=== PATIENT | female | born 1995 | race African-American/Black ===

== ENCOUNTER 2016-04-16 08:21 | Inpatient (IN) | payer SELFPAY ==
[~2016-04-16] VITALS: Ht 162.6 cm; Wt 90.7 kg
--- NOTE | 2016-04-16 08:29 | PHYS DOC ---
Past Medical History Past Medical History: No Pertinent History Past Surgical History: Tonsillectomy Alcohol Use: None Drug Use: None Adult General Chief Complaint Chief Complaint: GI PROBLEM HPI HPI Patient is a 20 year old female who presents with nausea vomiting and diarrhea and abdominal pain. She states it all started this morning. She's had 3-4 liquid-type stools with some formed stool in it in addition to several episodes of nonbloody vomiting. She states her last menstrual period was in December she's had some spotting last month. She states she's never been . She is unsure if she is currently but states her belly's been distended for 3 months. Review of Systems Review of Systems Constitutional: Denies fever or chills [] Eyes: Denies change in visual acuity, redness, or eye pain [] HENT: Denies nasal congestion or sore throat [] Respiratory: Denies cough or shortness of breath [] Cardiovascular: No additional information not addressed in HPI [] GI: Denies abdominal pain, nausea, vomiting, bloody stools or diarrhea [] : Denies dysuria or hematuria [] Musculoskeletal: Denies back pain or joint pain [] Integument: Denies rash or skin lesions [] Neurologic: Denies headache, focal weakness or sensory changes [] Endocrine: Denies polyuria or polydipsia [] Current Medications Current Medications Current Medications Medications (Trade) Dose Ordered Sig/Kelley Start Time Stop Time Status Last Admin Dose Admin Ondansetron HCl (Zofran) 4 mg STK-MED ONCE 04/16/16 08:53 04/16/16 08:54 DC Sodium Chloride (Iv Sodium Chloride 0.9% 1000ml Bag) 1,000 ml @ 1,000 mls/hr Q1H 04/16/16 08:48 04/16/16 09:47 DC Allergies Allergies Allergies Coded Allergies Type Severity Reaction Last Updated Verified No Known Drug Allergies 02/05/15 No Physical Exam Physical Exam Constitutional: Well developed, well nourished, no acute distress, non-toxic appearance. [] HENT: Normocephalic, atraumatic, bilateral external ears normal, oropharynx moist, no oral exudates, nose normal. [] Eyes: PERRLA, EOMI, conjunctiva normal, no discharge. [] Neck: Normal range of motion, no tenderness, supple, no stridor. [] Cardiovascular:Heart rate regular rhythm, no murmur [] Lungs & Thorax: Bilateral breath sounds clear to auscultation [] Abdomen: Bowel sounds normal, soft, mild tender palpation diffusely, gravid uterus, no pulsatile masses. [] Skin: Warm, dry, no erythema, no rash. [] Back: No tenderness, no CVA tenderness. [] Extremities: No tenderness, no cyanosis, no clubbing, ROM intact, no edema. [] Neurologic: Alert and oriented X 3, normal motor function, normal sensory function, no focal deficits noted. [] Psychologic: Affect normal, judgement normal, mood normal. [] Current Patient Data Vital Signs Vital Signs Date Time Temp Pulse Resp B/P Pulse Ox O2 Delivery O2 Flow Rate FiO2 04/16/16 08:28 98.9 107 16 137/72 98 Room Air 98.9 Lab Values Laboratory Tests Test 04/16/16 08:50 04/16/16 08:57 04/16/16 09:05 Urine Color Yellow Urine Clarity Clear Urine pH 8.0 Urine Specific [place] 1.015 Urine Protein 30mg/dL (NEG-TRACE) Urine Glucose (UA) Negativemg/dL (NEG) Urine Ketones (Stick) Tracemg/dL (NEG) Urine Blood Moderate (NEG) Urine Nitrite Negative (NEG) Urine Bilirubin Negative (NEG) Urine Urobilinogen Dipstick 1.0mg/dL (0.2 mg/dL) Urine Leukocyte Esterase Trace (NEG) Urine RBC 0/HPF (0-2) Urine WBC Occ/HPF (0-4) Urine Squamous Epithelial Cells Occ/LPF Urine Bacteria 0/HPF (0-FEW) Urine Opiates Screen Neg (NEG) Urine Methadone Screen Neg (NEG) Urine Barbiturates Neg (NEG) Urine Phencyclidine Screen Neg (NEG) Urine Amphetamine/Methamphetamine Neg (NEG) Urine Benzodiazepines Screen Neg (NEG) Urine Cocaine Screen Neg (NEG) Urine Cannabinoids Screen Neg (NEG) Urine Ethyl Alcohol Neg (NEG) POC Urine HCG, Qualitative Hcg positive (Negative) White Blood Count 17.4x10^3/uL (4.0-11.0) H Red Blood Count 4.24x10^6/uL (3.50-5.40) Hemoglobin 8.7g/dL (12.0-15.5) L Hematocrit 27.6% (36.0-47.0) L Mean Corpuscular Volume 65fL (79-100) L Mean Corpuscular Hemoglobin 21pg (25-35) L Mean Corpuscular Hemoglobin Concent 32g/dL (31-37) Red Cell Distribution Width 19.3% (11.5-14.5) H Platelet Count 394x10^3/uL (140-400) Neutrophils (%) (Auto) 87% (31-73) H Lymphocytes (%) (Auto) 7% (24-48) L Monocytes (%) (Auto) 4% (0-9) Eosinophils (%) (Auto) 1% (0-3) Basophils (%) (Auto) 0% (0-3) Neutrophils # (Auto) 15.2x10^3uL (1.8-7.7) H Lymphocytes # (Auto) 1.2x10^3/uL (1.0-4.8) Monocytes # (Auto) 0.8x10^3/uL (0.0-1.1) Eosinophils # (Auto) 0.1x10^3/uL (0.0-0.7) Basophils # (Auto) 0.1x10^3/uL (0.0-0.2) Segmented Neutrophils % 88% (35-66) H Band Neutrophils % 3% (0-9) Lymphocytes % 6% (24-48) L Monocytes % 3% (0-10) Platelet Estimate Adequate (ADEQUATE) Prothrombin Time 12.9SEC (11.7-14.0) Prothrombin Time INR 1.0 (0.8-1.1) PTT 26SEC (24-38) Sodium Level 141mmol/L (136-145) Potassium Level 3.3mmol/L (3.5-5.1) L Chloride Level 105mmol/L (98-107) Carbon Dioxide Level 23mmol/L (21-32) Anion Gap 13 (6-14) Blood Urea Nitrogen 4mg/dL (7-20) L Creatinine 0.6mg/dL (0.6-1.0) Estimated GFR (Cockcroft-Gault) 151.3 BUN/Creatinine Ratio 7 (6-20) Glucose Level 110mg/dL (70-99) H Calcium Level 8.8mg/dL (8.5-10.1) Total Bilirubin 0.8mg/dL (0.2-1.0) Aspartate Amino Transferase (AST) 15U/L (15-37) Alanine Aminotransferase (ALT) 15U/L (14-59) Alkaline Phosphatase 143U/L (46-116) H Total Protein 6.8g/dL (6.4-8.2) Albumin 2.6g/dL (3.4-5.0) L Albumin/Globulin Ratio 0.6 (1.0-1.7) L Lipase 149U/L (73-393) Laboratory Tests 04/16/16 09:05 Laboratory Tests 04/16/16 09:05 EKG EKG [] Radiology/Procedures Radiology/Procedures [] Impressions: Abdominal pain with Course & Med Decision Making Course & Med Decision Making Pertinent Labs and Imaging studies reviewed. (See chart for details) I placed an ultrasound on her abdomen is there is a fetus with cardiac activity present, I'm unable to determine age however I am guessing close to term. OB is paged to take her upstairs for further evaluation. OB arrived and did a cervical check and states she's fully dilated, and had a bloody show. Patient's being taken upstairs to labor and delivery at this time, in stable condition. Dragon Disclaimer Dragon Disclaimer This electronic medical record was generated, in whole or in part, using a voice recognition dictation system. Departure Departure Impression: Primary Impression: Abdominal pain during Disposition: ADMITTED INPATIENT Condition: STABLE Referrals: NO PCP (PCP) LILIAM LOCK MD Apr 16, 2016 08:29
[2016-04-16] MEDS ORDERED: IV NORMAL SALINE 1000ML BAG 1,000 ML IV SCH (08:48)
[2016-04-16] MEDS ORDERED: ONDANSETRON PF 4 MG/2 ML VIAL. ONE (08:53)
[2016-04-16] MEDS ORDERED: ONDANSETRON PF 4 MG/2 ML VIAL. IV ONE (09:00)
[2016-04-16 09:15] LABS: BARBITURATES NEG (NEG); BENZODIAZEPINES NEG (NEG); CANNABINOIDS NEG (NEG); COCAINE NEG (NEG); METHADONE NEG (NEG); OPIATES NEG (NEG); PHENCYCLIDINE NEG (NEG)
[2016-04-16 09:19] LABS: BASO # 0.1 x10^3/uL (0.0-0.2); BASO % 0 % (0-3); EOS % 1 % (0-3); HEMATOCRIT 27.6 % (36.0-47.0); HEMOGLOBIN 8.7 g/dL (12.0-15.5); LYMPH # 1.2 x10^3/uL (1.0-4.8); LYMPH % 7 % (24-48); MEAN CORPUSCULAR HEMOGLOBIN 21 pg (25-35); MEAN CORPUSCULAR HGB CONC 32 g/dL (31-37); MEAN CORPUSCULAR VOLUME 65 fL (79-100); MONO % 4 % (0-9); NEUT % 87 % (31-73); PLATELET COUNT 394 x10^3/uL (140-400); RED BLOOD COUNT 4.24 x10^6/uL (3.50-5.40); RED CELL DISTRIBUTION WIDTH 19.3 % (11.5-14.5); WHITE BLOOD COUNT 17.4 x10^3/uL (4.0-11.0)
[2016-04-16 09:20] LABS: ETHANOL, URINE NEG (NEG)
[2016-04-16 09:23] LABS: BILIRUBIN,URINE NEGATIVE (NEG); GLUCOSE,URINE NEGATIVE (NEG); NITRITE,URINE NEGATIVE (NEG); PROTEIN,URINE 30 mg/dL (NEG-TRACE)
[2016-04-16 09:24] LABS: CALCIUM 8.8 mg/dL (8.5-10.1); CREATININE 0.6 mg/dL (0.6-1.0); GFR 151.3; POTASSIUM 3.3 mmol/L (3.5-5.1)
[2016-04-16 09:29] LABS: ALBUMIN 2.6 g/dL (3.4-5.0); ALBUMIN/GLOBULIN RATIO 0.6 (1.0-1.7); TOTAL BILIRUBIN 0.8 mg/dL (0.2-1.0); TOTAL PROTEIN 6.8 g/dL (6.4-8.2)
--- NOTE | 2016-04-16 09:37 | PDOC ---
Provider Note Provider Note Pt presented C/100/+3 Limited PNC Standby delivery for Dr Corona Arrived soon after delivery of . MABEL HUGHES MD Apr 16, 2016 09:37
[2016-04-16 09:38] LABS: BACTERIA,URINE 0 /HPF (0-FEW); RBC,URINE 0 /HPF (0-2); SQUAMOUS EPITHELIAL CELL,UR OCC /LPF; WBC,URINE OCC /HPF (0-4)
[2016-04-16 10:10] LABS: PROTHROMBIN TIME PATIENT 12.9 SEC (11.7-14.0)
[2016-04-16] MEDS ORDERED: 0.9 % SODIUM CHLORIDE 10 ML DISP.SYRIN. IV PRN ×2 (10:15→10:30)
[2016-04-16] MEDS ORDERED: DIPHENHYDRAMINE HCL 25 MG CAPSULE PO PRN (10:15)
[2016-04-16] MEDS ORDERED: MAGNESIUM HYDROXIDE 2,400 MG/30 ML ORAL.SUSP. PO PRN (10:15)
[2016-04-16] MEDS ORDERED: BENZOCAINE 20% TOPICAL AEROSOL SPRAY 57GM CAN. TP PRN (10:15)
[2016-04-16] MEDS ORDERED: PHENYLEPH/MINERAL OIL/PETROLAT RECTAL OINTMENT 28GM TUBE. RC PRN (10:15)
[2016-04-16] MEDS ORDERED: ZOLPIDEM 5 MG TABLET. PO PRN (10:15)
[2016-04-16] MEDS ORDERED: MMR per PROTOCOL. MC PRN (10:15)
[2016-04-16] MEDS ORDERED: SIMETHICONE 80 MG TAB.CHEW PO PRN (10:15)
[2016-04-16] MEDS ORDERED: ACETAMINOPHEN 325 MG TABLET. PO PRN (10:15)
[2016-04-16] MEDS ORDERED: HYDROCORTISONE 1% TOPICAL OINTMENT 30GM TUBE. TP PRN (10:15)
[2016-04-16] MEDS ORDERED: HYDROCODONE/APAP 5/325MG TABLET. PO PRN ×2 (10:15)
[2016-04-16] MEDS ORDERED: MAG HYDROX/ALUMINUM HYD/SIMETH 30 ML ORAL.SUSP PO PRN (10:15)
[2016-04-16] MEDS ORDERED: OXYTOCIN 30 UNIT/500 ML PREMIX 500 ML IV PRN ×2 (10:15→10:30)
[2016-04-16 10:27] LABS: PLT ESTIMATE ADEQUATE (ADEQUATE)
[2016-04-16] MEDS ORDERED: IV RINGERS,LACTATED 1000ML 1,000 ML IV SCH (10:30)
[2016-04-16] MEDS ORDERED: TERBUTALINE 1 MG/ML VIAL. SQ PRN (10:30)
[2016-04-16] MEDS ORDERED: LIDOCAINE 1% PF 30 ML VIAL. INJ PRN (10:30)
[2016-04-16 11:54] LABS: HEMATOCRIT 27.4 % (36.0-47.0); HEMOGLOBIN 8.6 g/dL (12.0-15.5); RED BLOOD COUNT 4.17 x10^6/uL (3.50-5.40); RED CELL DISTRIBUTION WIDTH 19.7 % (11.5-14.5); WHITE BLOOD COUNT 19.2 x10^3/uL (4.0-11.0)
[2016-04-16 14:06] VITALS: BP 113/65
[2016-04-16 18:15] VITALS: BP 122/70
--- NOTE | 2016-04-16 21:41 | PDOC1 ---
OB - History Hx of Present Care: None Ultrasounds: No ultrasounds Obstetrical Complications: None Past Family/Social History * Past Medical, Surgical, Family and Obstetric Histories reviewed from chart. Blood Type: A+ GBS Status: Unknown HBsAG: Negative OB - Chief Complaint & HPI Date of Admission: Date of Admission: Apr 16, 2016 at 09:18 Chief Complaint/History : 1 Para: 0 EDC: Apr 16, 2016 (unknown) Reason for admission: active labor Admission Nurse Assessment Rev: Yes Problems: OB - Admission Exam Physical Exam Vitals: VS - Last 72 Hours, by Label Date Time Temp Pulse Resp B/P Pulse Ox O2 Delivery O2 Flow Rate FiO2 04/16/16 18:15 98.1 95 20 122/70 Room Air 98.1 04/16/16 14:06 98.3 114 20 113/65 98.3 04/16/16 08:28 98.9 107 16 137/72 98 Room Air 98.9 HEENT: Normal, Nasal Mucosa Normal, Oropharynx Normal, Moist Membranes, Fontanelles Normal Lungs: Clear, Equal Abdomen: Gravid Extremities: Normal Pulses, No tenderness or swelling Reflexes: Normal Cervical Dilatation: 10cm Effacement: 100% Station: +1 Membranes: Ruptured Amniotic Fluid: Clear Heart Rate: Normal Accelerations: Accelerations Present Decelerations: No decelerations Short Term Variability: Present Residential Variability: Moderate Contractions on Admission: < 5 Minutes Apart Date/Time Contractions Began;: 04/16/16 3 am SROM Intensity: SHAHID Peña MD Apr 16, 2016 21:41
[2016-04-16] MEDS: IBUPROFEN 800 MG TABLET. PO SCH (22:12)
[2016-04-16 22:59] VITALS: BP 120/76
--- NOTE | 2016-04-17 01:32 | OP ---
DATE OF SURGERY: 04/16/2016 CLINCAL COURSE: This patient is a 20-year-old G1, P0, -[place] female who came to the Emergency Room complaining of abdominal pain, nausea, vomiting. She apparently was unaware that she was . This was discovered during ER evaluation, she was transferred to the floor. She was complete and had ruptured membranes. After discussion, it was felt that the patient had ruptured membranes approximately 6 hours prior to evaluation in the Emergency Room. She began precipitous delivery with Dr. Worthy in attendance. The was delivered and the remainder of delivery was attended by myself with clamping of cord, suctioning of baby, transection of the cord and handing of baby, placenta was then delivered intact with 3-vessel cord noted after obtaining cord gases and cord blood. Uterus was firm with Pitocin and palpation. A second degree midline laceration was noted as well as two vaginal side wall lacerations, these were sutured with 3-0 chromic in a running locking fashion. There was good hemostasis with approximately 300 mL blood loss. Mother and baby went to recovery in stable condition. Complications of this delivery were precipitous delivery with apparent term infant with no care. There is no anesthesia used for delivery. SHAHID ARREDONDO MD DR: STACI/melvin JOB#: [id number] / [id number]
[2016-04-17 06:13] VITALS: BP 121/81
[2016-04-17 07:28] LABS: BASO % 0 % (0-3); EOS % 0 % (0-3); HEMATOCRIT 24.9 % (36.0-47.0); HEMOGLOBIN 7.6 g/dL (12.0-15.5); LYMPH # 2.1 x10^3/uL (1.0-4.8); LYMPH % 13 % (24-48); MEAN CORPUSCULAR HEMOGLOBIN 20 pg (25-35); MEAN CORPUSCULAR HGB CONC 30 g/dL (31-37); MEAN CORPUSCULAR VOLUME 67 fL (79-100); MONO % 10 % (0-9); NEUT % 76 % (31-73); PLATELET COUNT 323 x10^3/uL (140-400); RED CELL DISTRIBUTION WIDTH 19.9 % (11.5-14.5); WHITE BLOOD COUNT 15.9 x10^3/uL (4.0-11.0)
[2016-04-17] MEDS: FERROUS SULFATE 325 MG TABLET PO SCH ×2 (08:57→17:38)
[2016-04-17] MEDS ORDERED: FLU VACC QUAD 2016-17 (36MOS+)/PF 0.5 ML SYRINGE. VAX IM ONE (09:00)
[2016-04-17] MEDS ORDERED: DIPHTH,PERTUSS(ACELL),TET TOX 0.5 ML DISP.SYRIN. VAX IM ONE (09:00)
--- NOTE | 2016-04-17 11:09 | PDOC ---
PROGRESS NOTES Subjective Subjective Patient doing well day 1. Patient tolerating diet and ambulate. Patient having decreased pain and bleeding. Patient arrived with low hemoglobin of approximately 8 she is now down to 7.6 without evidence of shock or dizziness will proceed with iron supplementation and education Objective Objective Vital Signs Date Time Temp Pulse Resp B/P Pulse Ox O2 Delivery O2 Flow Rate FiO2 04/17/16 06:13 100.9 80 18 121/81 100.9 04/16/16 18:15 Room Air 04/16/16 08:28 98 Physical Exam Abdomen: Normal bowel sounds, Other (uterus firm and below umbilicus) Heart: Regular rate, Other (negative Nadia's sign) Extremities: No edema General: Alert Lungs: Clear to auscultation Assessment Assessment Problems Medical Problems: (1) Abdominal pain during Status: Acute day #1 Plan Plan of Care Routine care Obtain urine for GC chlamydia and trichomoniasis. Comment Review of Relevant I have reviewed the following items bernadine (where applicable) has been applied. Labs Laboratory Tests Test 04/16/16 08:50 04/16/16 08:57 04/16/16 09:05 04/16/16 11:20 Urine Color Yellow Urine Clarity Clear Urine pH 8.0 Urine Specific [place] 1.015 Urine Protein 30mg/dL (NEG-TRACE) Urine Glucose (UA) Negativemg/dL (NEG) Urine Ketones (Stick) Tracemg/dL (NEG) Urine Blood Moderate (NEG) Urine Nitrite Negative (NEG) Urine Bilirubin Negative (NEG) Urine Urobilinogen Dipstick 1.0mg/dL (0.2 mg/dL) Urine Leukocyte Esterase Trace (NEG) Urine RBC 0/HPF (0-2) Urine WBC Occ/HPF (0-4) Urine Squamous Epithelial Cells Occ/LPF Urine Bacteria 0/HPF (0-FEW) Urine Opiates Screen Neg (NEG) Urine Methadone Screen Neg (NEG) Urine Barbiturates Neg (NEG) Urine Phencyclidine Screen Neg (NEG) Urine Amphetamine/Methamphetamine Neg (NEG) Urine Benzodiazepines Screen Neg (NEG) Urine Cocaine Screen Neg (NEG) Urine Cannabinoids Screen Neg (NEG) Urine Ethyl Alcohol Neg (NEG) Bedside Urine HCG, Qualitative Hcg positive (Negative) White Blood Count 17.4x10^3/uL (4.0-11.0) 19.2x10^3/uL (4.0-11.0) Red Blood Count 4.24x10^6/uL (3.50-5.40) 4.17x10^6/uL (3.50-5.40) Hemoglobin 8.7g/dL (12.0-15.5) 8.6g/dL (12.0-15.5) Hematocrit 27.6% (36.0-47.0) 27.4% (36.0-47.0) Mean Corpuscular Volume 65fL (79-100) 66fL (79-100) Mean Corpuscular Hemoglobin 21pg (25-35) 21pg (25-35) Mean Corpuscular Hemoglobin Concent 32g/dL (31-37) 31g/dL (31-37) Red Cell Distribution Width 19.3% (11.5-14.5) 19.7% (11.5-14.5) Platelet Count 394x10^3/uL (140-400) 366x10^3/uL (140-400) Neutrophils (%) (Auto) 87% (31-73) Lymphocytes (%) (Auto) 7% (24-48) Monocytes (%) (Auto) 4% (0-9) Eosinophils (%) (Auto) 1% (0-3) Basophils (%) (Auto) 0% (0-3) Neutrophils # (Auto) 15.2x10^3uL (1.8-7.7) Lymphocytes # (Auto) 1.2x10^3/uL (1.0-4.8) Monocytes # (Auto) 0.8x10^3/uL (0.0-1.1) Eosinophils # (Auto) 0.1x10^3/uL (0.0-0.7) Basophils # (Auto) 0.1x10^3/uL (0.0-0.2) Segmented Neutrophils % 88% (35-66) Band Neutrophils % 3% (0-9) Lymphocytes % 6% (24-48) Monocytes % 3% (0-10) Platelet Estimate Adequate (ADEQUATE) Prothrombin Time 12.9SEC (11.7-14.0) Prothromb Time International Ratio 1.0 (0.8-1.1) Activated Partial Thromboplast Time 26SEC (24-38) Sodium Level 141mmol/L (136-145) Potassium Level 3.3mmol/L (3.5-5.1) Chloride Level 105mmol/L (98-107) Carbon Dioxide Level 23mmol/L (21-32) Anion Gap 13 (6-14) Blood Urea Nitrogen 4mg/dL (7-20) Creatinine 0.6mg/dL (0.6-1.0) Estimated GFR (Cockcroft-Gault) 151.3 BUN/Creatinine Ratio 7 (6-20) Glucose Level 110mg/dL (70-99) Calcium Level 8.8mg/dL (8.5-10.1) Total Bilirubin 0.8mg/dL (0.2-1.0) Aspartate Amino Transf (AST/SGOT) 15U/L (15-37) Alanine Aminotransferase (ALT/SGPT) 15U/L (14-59) Alkaline Phosphatase 143U/L (46-116) Total Protein 6.8g/dL (6.4-8.2) Albumin 2.6g/dL (3.4-5.0) Albumin/Globulin Ratio 0.6 (1.0-1.7) Lipase 149U/L (73-393) RPR Titer Additional Testing Negative (Non Reactive) Hepatitis B Surface Antigen Negative (Negative) HIV-1 Antibody Non reactive (Non Reactive) Test 04/17/16 07:00 White Blood Count 15.9x10^3/uL (4.0-11.0) Red Blood Count 3.70x10^6/uL (3.50-5.40) Hemoglobin 7.6g/dL (12.0-15.5) Hematocrit 24.9% (36.0-47.0) Mean Corpuscular Volume 67fL (79-100) Mean Corpuscular Hemoglobin 20pg (25-35) Mean Corpuscular Hemoglobin Concent 30g/dL (31-37) Red Cell Distribution Width 19.9% (11.5-14.5) Platelet Count 323x10^3/uL (140-400) Neutrophils (%) (Auto) 76% (31-73) Lymphocytes (%) (Auto) 13% (24-48) Monocytes (%) (Auto) 10% (0-9) Eosinophils (%) (Auto) 0% (0-3) Basophils (%) (Auto) 0% (0-3) Neutrophils # (Auto) 12.1x10^3uL (1.8-7.7) Lymphocytes # (Auto) 2.1x10^3/uL (1.0-4.8) Monocytes # (Auto) 1.6x10^3/uL (0.0-1.1) Eosinophils # (Auto) 0.0x10^3/uL (0.0-0.7) Basophils # (Auto) 0.0x10^3/uL (0.0-0.2) Laboratory Tests Test 04/16/16 11:20 04/17/16 07:00 White Blood Count 19.2x10^3/uL (4.0-11.0) 15.9x10^3/uL (4.0-11.0) Red Blood Count 4.17x10^6/uL (3.50-5.40) 3.70x10^6/uL (3.50-5.40) Hemoglobin 8.6g/dL (12.0-15.5) 7.6g/dL (12.0-15.5) Hematocrit 27.4% (36.0-47.0) 24.9% (36.0-47.0) Mean Corpuscular Volume 66fL (79-100) 67fL (79-100) Mean Corpuscular Hemoglobin 21pg (25-35) 20pg (25-35) Mean Corpuscular Hemoglobin Concent 31g/dL (31-37) 30g/dL (31-37) Red Cell Distribution Width 19.7% (11.5-14.5) 19.9% (11.5-14.5) Platelet Count 366x10^3/uL (140-400) 323x10^3/uL (140-400) RPR Titer Additional Testing Negative (Non Reactive) Hepatitis B Surface Antigen Negative (Negative) HIV-1 Antibody Non reactive (Non Reactive) Neutrophils (%) (Auto) 76% (31-73) Lymphocytes (%) (Auto) 13% (24-48) Monocytes (%) (Auto) 10% (0-9) Eosinophils (%) (Auto) 0% (0-3) Basophils (%) (Auto) 0% (0-3) Neutrophils # (Auto) 12.1x10^3uL (1.8-7.7) Lymphocytes # (Auto) 2.1x10^3/uL (1.0-4.8) Monocytes # (Auto) 1.6x10^3/uL (0.0-1.1) Eosinophils # (Auto) 0.0x10^3/uL (0.0-0.7) Basophils # (Auto) 0.0x10^3/uL (0.0-0.2) Medications Current Medications Sodium Chloride (Iv Sodium Chloride 0.9% 1000ml Bag) 1,000 ml @ 1,000 mls/hr Q1H IV ; Start 04/16/16 at 08:48; Stop 04/16/16 at 09:47; Status DC Ondansetron HCl (Zofran) 4 mg 1X ONCE IV ; Start 04/16/16 at 09:00; Stop at 09:01; Status DC Ondansetron HCl (Zofran) 4 mg STK-MED ONCE .ROUTE ; Start 04/16/16 at 08:53; Stop 04/16/16 at 08:54; Status DC Sodium Chloride 10 ml 10 ml QSHIFT PRN IV AFTER MEDS AND BLOOD DRAWS; Start at 10:15 Oxytocin/Sodium Chloride (Oxytocin Premix Infusion) 500 ml @ 62.5 mls/hr CONT PRN IV SEE I/O RECORD Last administered on 04/16/16 11:18; Start 04/16/16 at 10 :15; Stop 04/16/16 at 18:14; Status DC Acetaminophen (Tylenol) 650 mg PRN Q6HRS PRN PO MILD PAIN / TEMP; Start at 10:15 Ibuprofen (Motrin) 800 mg Q8HRS PO Last administered on 04/16/16 22:12; Start 04/16/16 at 14:00 Magnesium Hydroxide (Milk Of Magnesia) 2,400 mg PRN DAILY PRN PO CONSTIPATION Last administered on 04/17/16 08:58; Start 04/16/16 at 10:15 Al Hydrox/Mg Hydrox/Simethicone (Mylanta Plus Xs) 30 ml PRN Q4HRS PRN PO HEARTBURN / GAS; Start 04/16/16 at 10:15 Simethicone (Gas-X) 80 mg PRN AFTMEALHC PRN PO GAS / BLOATING; Start 04/16/16 at 10:15 Diphenhydramine HCl (Benadryl) 25 mg PRN Q6HRS PRN PO ITCHING; Start 04/16/16 at 10:15 Benzocaine (Americaine) 1 spray PRN QID PRN TP TOPICAL PAIN; Start 04/16/16 at 10:15 Phenyleph/Shark Oil/Min Oil/Petrol (Preparation H) 1 zee PRN QID PRN RC RECTAL PAIN; Start 04/16/16 at 10:15 Hydrocortisone (Cortaid) 1 zee PRN QID PRN TP PERINEAL PAIN; Start 04/16/16 at 10:15 Ferrous Sulfate (Feosol) 325 mg BIDWMEALS PO Last administered on 04/17/16t 08: 57; Start 04/17/16 at 08:00 Zolpidem Tartrate (Ambien) 5 mg PRN QHS PRN PO INSOMNIA, MAY REPEAT X1; Start 04/16/16 at 10:15 Info (Do NOT chart on this placeholder) 1 ea 1X PRN PRN MC SEE COMMENTS; Start 04/16/16 at 10:15 Info (Do NOT chart on this placeholder) 1 ea 1X PRN PRN MC SEE COMMENTS; Start 04/16/16 at 10:15 Acetaminophen/ Hydrocodone Bitart (Lortab 5/325) 1 tab PRN Q4HRS PRN PO MILD PAIN; Start 04/16/16 at 10:15 Acetaminophen/ Hydrocodone Bitart (Lortab 5/325) 2 tab PRN Q4HRS PRN PO MODERATE PAIN, SEVERE PAIN; Start 04/16/16 at 10:15 Sodium Chloride 3 ml 3 ml QSHIFT PRN IV AFTER MEDS AND BLOOD DRAWS; Start 04/16 at 10:30 Lactated Ringer's (Iv Lactated Ringers) 1,000 ml @ 125 mls/hr Q8H IV Last administered on 04/16/16t 11:18; Start 04/16/16 at 10:30 Terbutaline Sulfate (Brethine) 0.25 mg 1X PRN PRN SQ SEE COMMENTS; Start at 10:30; Stop 04/17/16 at 10:29; Status DC Lidocaine HCl 30 ml 30 ml 1X PRN PRN INJ SEE COMMENTS Last administered on 04/16t 11:19; Start 04/16/16 at 10:30; Stop 04/18/16 at 10:29 Oxytocin/Sodium Chloride (Oxytocin Premix Infusion) 500 ml @ 0 mls/hr CONT PRN PRN IV Post delivery bleeding; Start 04/16/16 at 10:30 Influenza Virus Vaccine Quadrival (Fluarix Quad [id number] Syringe) 0.5 ml ONCE ONCE VAX IM ; Start 04/17/16 at 09:00; Stop 04/17/16 at 09:01; Status DC Diphtheria/ Tetanus/Acell Pertussis (Boostrix) 0.5 ml ONCE ONCE VAX IM ; Start 04/17/16 at 09:00; Stop 04/17/16 at 09:01; Status DC Vitals/I & O Vital Sign - Last 24 Hours 04/16/16 04/16/16 04/16/16 04/17/16 14:06 18:15 22:59 06:13 Temp 98.3 98.1 99.7 100.9 98.3 98.1 99.7 100.9 Pulse 114 95 98 80 Resp 20 20 18 18 B/P 113/65 122/70 120/76 121/81 O2 Delivery Room Air SHAHID ARREDONDO MD Apr 17, 2016 11:09
[2016-04-17 11:30] VITALS: BP 106/63
[2016-04-17] MEDS: IBUPROFEN 800 MG TABLET. PO SCH (17:38)
[2016-04-17 18:55] VITALS: BP 120/72
[2016-04-17 21:45] VITALS: BP 103/61
[2016-04-18] MEDS: IBUPROFEN 800 MG TABLET. PO SCH ×2 (05:59→15:27)
[2016-04-18 06:00] VITALS: BP 123/71
[2016-04-18] MEDS: FERROUS SULFATE 325 MG TABLET PO SCH (07:51)
[2016-04-18] MEDS ORDERED: MEASLES, MUMPS & RUBELLA VACC 0.5 ML VIAL. VAX SQ ONE (09:00)
--- NOTE | 2016-04-18 11:45 | PDOC3 ---
OB DISCHARGE SUMMARY DATE OF ADMISSION: 04/16/16 DATE OF DISCHARGE: 04/18/16 REASON FOR ADMISSION: Onset of labor, SROM, Other (precipitus delivery) PROBLEM LIST AT DISCHARGE Problems Medical Problems: (1) Abdominal pain during Status: Acute (2) Term delivered Status: Acute DISCHARGE DIAGNOSIS: Term Delivered, Others (anemia) DISCHARGE INFORMATION: Activity (no sexual activity), Medications (see mrad), Instructions (F/U 6 weeks) HOSPITAL COURSE Benign CONDITION AT DISCHARGE stable SHAHID ARREDONDO MD Apr 18, 2016 11:45
[2016-04-18 12:40] VITALS: BP 113/72
== END 2016-04-18 17:44 | disposition home or self-care (01) | DRG 775 ==
LOC: ER 08:21 → OBSVTOIN 09:18 → 3 SO LND 09:18
PROVIDERS: ADMIT Family Medicine; ATTEND Family Medicine
PROC: 10D07Z6 Extraction of Products of Conception, Vacuum, Via Natural or Artificial Opening (ICD-10-PCS; principal; 2016-04-16)
PROC: 0KQM0ZZ Repair Perineum Muscle, Open Approach (ICD-10-PCS; 2016-04-16)
PROC: 0UQGXZZ Repair Vagina, External Approach (ICD-10-PCS; 2016-04-16)
DX: O99.02 Anemia complicating childbirth (principal); O62.3 Precipitate labor; D64.9 Anemia, unspecified; Z3A.39 39 weeks gestation of pregnancy; Z37.0 Single live birth; O70.1 Second degree perineal laceration during delivery
CPT/HCPCS: 36415; 80053; 81001; 81025; 83690; 85007; 85027; 85610; 85730; 86593; 86703; 86762; 86850; 86900; 86901; 87086; 87340; 87341; 87491; 87591; 90686; 90707; 90715; G0481; J2590; J7120; 99285-25

== ENCOUNTER 2017-08-01 17:39 | Emergency (ER) | payer SELFPAY, OTHER | END 2017-08-01 18:03 | disposition home or self-care (01) | LOC: ER 18:03 | DX: S80.262A Insect bite (nonvenomous), left knee, initial encounter (principal); W57.XXXA Bitten or stung by nonvenomous insect and other nonvenomous arthropods, initial encounter; Y93.89 Activity, other specified; Y92.89 Other specified places as the place of occurrence of the external cause; Y99.8 Other external cause status | CPT/HCPCS: 99283 ==